=== PATIENT | male | born 1955 | race Caucasian/White ===

== ENCOUNTER 2019-04-22 07:18 | Day surgery (SDC) | payer OTHER ==
[2019-04-22] MEDS ORDERED: Propofol 200 MG/20 ML SDV ONE ×2 (07:40→09:03)
[2019-04-22] MEDS ORDERED: Midazolam 1 MG/ML 2 ML SDV ONE (07:40)
[2019-04-22] MEDS ORDERED: fentaNYL 100 MCG/2 ML SDV ONE (07:40)
[2019-04-22] MEDS ORDERED: Sodium Chloride 0.9% 1,000 ML IV SCH (07:45)
--- NOTE | 2019-04-22 14:57 | PROC ---
DATE OF PROCEDURE: 04/22/2019 SURGEON: Chinmay Vera MD PROCEDURE: Colonoscopy. PREPROCEDURE DIAGNOSIS: Screening colonoscopy. POSTPROCEDURE DIAGNOSES: 1. Screening colonoscopy. 2. Small sigmoid colon polyp, removed using biopsy forceps. DESCRIPTION OF PROCEDURE: Risks and goals of procedure, including potential risks of uncontrolled bleeding and perforation, were reviewed with the patient, and he gave informed consent to proceed. He was brought back to the endoscopy room. Sedation and monitoring provided by Alberto Vidales CRNA, from the Anesthesia Service. A time-out was held prior to the procedure to confirm right site, right patient, right procedure as well as to identify any potential concerns with the procedure, of which there were none. He was placed in a left lateral decubitus position. After adequate sedation was achieved, digital rectal exam was performed, which was unremarkable. Following this, flexible colonoscope was placed and advanced out through the colon to the cecum. Cecum was identified by the appendiceal orifice and the ileocecal valve. Scope was then slowly withdrawn back through the length of the colon to the rectum, where it was retroflexed, straightened, and removed. He was noted to have a small 0.2 cm polyp in the sigmoid colon, which was removed using biopsy forceps. No other mucosal polyps, masses, or lesions were seen and the procedure was, otherwise, completed without complication. He will be monitored in [facility] in outpatient area until fully recovered from IV sedation and then discharged to home. Pathologic review of biopsy specimen is pending at the time of this dictation. Chinmay Vera MD /[id number]
== END 2019-04-22 10:24 | disposition home or self-care (01) ==
LOC: JP.SDS 07:18
PROVIDERS: ATTEND Hospitalist
DX: Z12.11 Encounter for screening for malignant neoplasm of colon (principal); D12.5 Benign neoplasm of sigmoid colon; E11.9 Type 2 diabetes mellitus without complications
CPT/HCPCS: 45380; J2250; J2704; J3010; J7030

== ENCOUNTER 2021-04-25 07:02 | Day surgery (SDC) | payer OTHER ==
[2021-04-25] MEDS ORDERED: Bupivacaine 0.5%/EPINEPHrine 1:200,000 50 ML MDV ONE (07:25)
[2021-04-25] MEDS ORDERED: Sodium Chloride 0.9% 1,000 ML IV SCH (07:30)
[2021-04-25] MEDS ORDERED: fentaNYL 100 MCG/2 ML SDV ONE (07:34)
[2021-04-25] MEDS ORDERED: Propofol 200 MG/20 ML SDV ONE ×2 (07:34→09:02)
[2021-04-25] MEDS ORDERED: Midazolam 1 MG/ML 2 ML SDV ONE (07:34)
[2021-04-25] MEDS ORDERED: metroNIDAZOLE/Normal Saline 500 MG in Premix Bag 1 BAG IV ONE (08:00)
[2021-04-25] MEDS ORDERED: ceFAZolin 2 GM in Premix Bag 1 BAG IV ONE (08:00)
[2021-04-25] MEDS ORDERED: Glycopyrrolate 0.2 MG/ML 5 ML MDV ONE (08:42)
[2021-04-25] MEDS ORDERED: Ketorolac 30 MG/ML SDV ONE (08:53)
== END 2021-04-25 11:15 | disposition home or self-care (01) ==
LOC: JP.SDS 07:02
PROVIDERS: ATTEND Surgery
DX: K42.9 Umbilical hernia without obstruction or gangrene (principal); E11.9 Type 2 diabetes mellitus without complications; E66.9 Obesity, unspecified; Z68.30 Body mass index [BMI] 30.0-30.9, adult
CPT/HCPCS: J0171; J0690; J1100; J1885; J2250; J2704; J2795; J3010; J3490; J7030